=== PATIENT | female | born 1950 | race Caucasian/White ===

== ENCOUNTER 2020-07-06 21:01 | Emergency (ER) | payer MEDICARE, MEDICAID, SELFPAY ==
[2020-07-06] VITALS (14 sets, daily range): BP systolic 106–125; BP diastolic 65–83; PULSE 65–91; RESP 12–21; TEMP 36.4–36.6; O2SAT 95–99; BMI 41.5
--- NOTE | 2020-07-06 21:08 | CTR_ITS ---
PROCEDURE INFORMATION: Exam: CT Head Without Contrast Exam date and time: 07/06/2020 9:09 PM Age: 70 years old Clinical indication: Weakness, extremity and weakness, facial; Left; Patient HX: Jonelle 2 hrs ago complete L sided defecit; Additional info: CVA TECHNIQUE: Imaging protocol: Computed tomography of the head without contrast. Radiation optimization: All CT scans at this facility use at least one of these dose optimization techniques: automated exposure control; mA and/or kV adjustment per patient size (includes targeted exams where dose is matched to clinical indication); or iterative reconstruction. Other technique: STROKE PROTOCOL was implemented. COMPARISON: No relevant prior studies available. RADIATION DOSE METRICS: Total DLP (mGy-cm): 637.79 FINDINGS: Brain: An 1.1 x 1.2 x 3.2 cm hemorrhage is present in the antoinette. No midline shift. No CT evidence of acute infarction is seen. Cerebral ventricles: No ventriculomegaly. Bones/joints: Unremarkable. No acute fracture. Paranasal sinuses: Visualized sinuses are unremarkable. No fluid levels. Mastoid air cells: Visualized mastoid air cells are well aerated. Soft tissues: Unremarkable. CT/CT head wo con* [id number] IMPRESSION: Pontine hemorrhage. ASSESSMENT: ASPECTS ([place] Stroke Program Early CT Score) is 10. Radiation Dose CTDIVOL = (mGy): DLP = 637.79 (mGy-cm)
--- NOTE | 2020-07-06 21:11 | XRR_ITS ---
PROCEDURE INFORMATION: Exam: XR Chest, 1 View Exam date and time: 07/06/2020 9:19 PM Age: 70 years old Clinical indication: Condition or disease; Other: AMS; Patient HX: Intubated, og tube TECHNIQUE: Imaging protocol: XR of the chest Views: 1 view. COMPARISON: No relevant prior studies available. FINDINGS: Tubes, catheters and devices: Endotracheal tube, tip 3.3 cm above noel. Nasogastric tube, tip below diaphragm and off image. Lungs: Moderate right basilar airspace opacity (atelectasis and/or consolidation). Mild patchy airspace opacities (atelectasis and/or consolidation) at the left lung base. Mild pulmonary vascular congestion. Pleural space: No visible pneumothorax. Small right pleural effusion. Heart/Mediastinum: Heart size within normal limits. Large right paratracheal mass. If this has not been previously investigated, CT of the chest with contrast is suggested. Diaphragm: Elevation of the right hemidiaphragm. Bones/joints: No emergent findings identified. XR/XR chest 1V portable [id number] IMPRESSION: 1. Endotracheal tube, tip 3.3 cm above noel. 2. Nasogastric tube, tip below diaphragm and off image. 3. Moderate right basilar airspace opacity (atelectasis and/or consolidation). 4. Mild patchy airspace opacities (atelectasis and/or consolidation) at the left lung base. 5. Mild pulmonary vascular congestion. 6. Small right pleural effusion. 7. Large right paratracheal mass. If this has not been previously investigated, CT of the chest with contrast is suggested. 8. Elevation of the right hemidiaphragm.
--- NOTE | 2020-07-06 21:12 | ECG_ITS ---
[facility] Test Date: 2020-07-06 Pat Name: Niesha Watkins Department: Room: Gender: Female Adjutant General: : 1950 Requested By: Bakari Reza Order Number: [id number] Keith MD: Flo Pace M.D. Measurements Intervals [place] Rate: 91 P: 47 IA: 159 QRS: 15 QRSD: 92 T: 61 QT: 364 QTc: 449 Interpretive Statements SINUS RHYTHM WITH OCCASIONAL SUPRAVENTRICULAR PREMATURE COMPLEXES No previous ECG available for comparison Electronically Signed On 07-07-2020 19:00:32 [employer] by Flo Pace M.D. [id number]
[2020-07-06] MEDS: succinylcholine 20 mg/mL SDV 10mL 200 MG IVP (21:24)
[2020-07-06] MEDS: midazolam 1 mg/mL INJ 2 mL 4 MG IVP (21:30)
--- NOTE | 2020-07-06 21:39 | ED_ITS ---
HPI - Neuro Symptoms/Deficit General: Chief Complaint: Neuro Symptoms/Deficit Stated Complaint: STROKE ALERT Time Seen by Provider: 07/06/20 21:08 History of Present Illness: HPI Narrative: 70-year-old female who around 7 PM this evening began to complain of a bad headache. She started having language problems, and ataxia at home. Ambulance was called at some point thereafter. She presents with increasing obtundation. She says some words, some nonsensic al. Notably she was following commands on the way to the hospital, but currently is not. She does have a history of COPD. It is unknown at this point if she is on any anticoagulants Onset (ago): hour(s) Last Observed Normal: 19:00 Timing confirmed by: family member Location: speech, left arm and left leg History of same: No Severity: severe Quality: weak Relieving factors: none Exacerbating factors: none Context: sudden onset Review of Systems General: Reports: ROS unobtainable due to mental status NIH stroke score NIHSS: Level Of Consciousness - 1a: 3 Level Of Consciousness Questions - 1b: Neither Correct Level Of Consciousness Commands - 1c: Neither Correct Best Gaze - 2: Normal Visual Munoz - 3: No Visual Loss Facial Palsy - 4: Normal Motor Arm Right - 5: Effort Against Washta Motor Arm Left - 5: Effort Against Washta Motor Leg Right - 6: Effort Against Washta Motor Leg Left - 6: No Effort Against Washta Limb Ataxia - 7: Absent Sensory - 8: Normal Best Language - 9: Severe Aphasia Dysarthia - 10: Intubated Extinction And Inattention - 11: 2 Score: Total Score: 20 Physical Exam Const: EXAM LIMITATIONS: altered mental status ORIENTATION/CONSCIOUSNESS: Yes patient obtunded Chest: COMMONS NORMALS: normal inspection of the chest Resp: EFFORT & INSPECTION: Yes tachypneic and No tracheal deviation AUSCULTATION: crackles, wheezes and diminished lung sounds Cardio: COMMON NORMALS: Peripheral pulses 2+ throughout PERIPHERAL PULSES: Peripheral pulses 2+ throughout GI: COMMON NORMALS: Normal to inspection, nondistended, normoactive bowel sounds present Procedures Intubation Time out performed: No sedative: Etomidate Mg Given: 20 paralytic: Succinylcholine Mg Given: 200 Laryngoscope: Halle (4) ET Tube Size: 8 ET Tube Uncuffed: No Tube Secured Depth (cm): 24 Tube Placement Confirmation: visualized tube passing through cords, no breath sounds over epigastrium and confirmation by capnometry Patient Tolerated Procedure: well and no complications Intubation Complications: none Course Consultations: Consultation #1: Lynne Chavez Neurosurgery Consultation #2: Lynne Quarles ER Vital Signs: Vital signs: Vital Signs Temperature 97.8 F 07/06/20 21:35 Pulse Rate 68 07/07/20 01:10 Respiratory Rate 12 07/07/20 02:15 Blood Pressure 96/53 07/07/20 01:10 Pulse Oximetry 99 07/07/20 01:10 MDM - Neuro Symptoms/Deficit MDM Narrative: Medical decision making narrative: 70-year-old female with dysarthria, left-sided weakness, and severe headache. She has an intracranial hemorrhage, pontine on CT. On arrival, she became more more obtunded, and was intubated without complication. She has a history of significant COPD. Initial blood gas showed normal pH but an elevated PCO2, but the patient was becoming increasingly obtunded very quickly. Stable now on the ventilator. Heart rate 72, O2 sat 98%, blood pressure 106/79. She is on Versed and fentanyl for se dation. We have no neurosurgery or neurology coverage here. We talked to Dr. Chavez, neurosurgery at [facility] who tentatively excepted the patient to the ER. We talked to the ER at [facility], and they have accepted. There were no beds at either hospital in [place], as they are on divert. We also checked air ambulance, and nobody can fly due to low visibility, so she will go by ground. 23:35 [facility], ER called us back about this patient. As it seems, they have no ICU beds available, and this patient would have to be held in the ER all night, as such they do not believe it would be in the best interest of the patient to transfer from here to there. They suggested we call other facilities multiple other facilities have been called. We ended up speaking with the transfer line at [facility] in [place]. Dr. Andino from neurosurgery accepted the patient to the neuro ICU there. Again due to weather concerns, she will have to go by ground. Lab Data: Labs: Lab Results 07/06/20 07/06/20 07/06/20 Range/Units 21:15 21:18 21:18 WBC Cancelled Corrected WBC Cancelled RBC Cancelled Hgb Cancelled Hct Cancelled MCV Cancelled MCH Cancelled MCHC Cancelled RDW Cancelled Plt Count Cancelled MPV Cancelled Gran % Cancelled Neut % (Auto) Cancelled Lymph % (Auto) Cancelled [place] % (Auto) Cancelled Eos % (Auto) Cancelled Baso % (Auto) Cancelled Neut # (Auto) Cancelled Lymph # (Auto) Cancelled [place] # (Auto) Cancelled Eos # (Auto) Cancelled Baso # (Auto) Cancelled Absolute Gran (aut o) Cancelled Nucleated RBC % (a uto) Cancelled Nucleated RBCs # Cancelled PT 13.90 (12.1-14.9) SECO NDS INR 1.04 (0.8-1.2) APTT 22.4 L (23.9-36.7) SECO NDS Specimen Type Arterial Sample Site Radial, right ABG pH 7.40 (7.35-7.45) ABG pCO2 52.7 H (35-45) mmHg ABG pO2 91.7 (80.0-100.0) mmH g ABG HCO3 32.7 H (22-26) mmol/L ABG O2 Saturation ABG Base Excess 6.2 H (-2.0-2.0) mmol/ L [place] Test Pos A-a O2 Gradient (5-10) mmHg Hematocrit 46.6 (37-47) % Hgb O2 Saturation (95-100) % Carboxyhemoglobin (0.4-20.1) %THgb Methemoglobin (0.4-1.5) % Total Hemoglobin (12-16) g/dL Ionized Calcium (1.1-1.4) mmol/L O2 Delivery Device Nc O2 Liters/Min 5.0 % Mechanical Rate FiO2 % Tidal Volume PEEP cmH20 Traveling Sales Executive ID [id number] Sodium (136-145) mmol/L Potassium (3.5-5.1) mmol/L Chloride (98-107) mmol/L Carbon Dioxide (22-29) mmol/L Anion Gap (5-19) BUN (8-23) mg/dL Creatinine (0.5-0.9) mg/dL GFR Calculation (90-130) mL/min Glucose (65-115) mg/dL Calculated Osmolal ity (285-295) mOsm/k g Calcium (8.5-10.5) mg/dL Magnesium (1.7-2.3) mg/dL Total Bilirubin (0.15-1.2) mg/dL AST (0-32) U/L ALT (0-33) U/L Alkaline Phosphata se (35-105) IU/L C-Reactive Protein (0.0-4.9) mg/L Total Protein (6.6-8.7) g/dL Albumin (3.5-5.2) g/dL Globulin (1.3-4.6) g/dL Urine Color (Yellow) Urine Appearance (CLEAR) Urine pH (5-7) Ur Specific Gravit y (1.005-1.030) Urine Protein (Negative) Urine Glucose (UA) (Normal) Urine Ketones (Negative) Urine Blood (Negative) Urine Nitrate (Negative) Urine Bilirubin (Negative) Urine Urobilinogen (Negative) mg/dL Ur Leukocyte Aileen ase (Negative) SARS-CoV-2 Ag (Rap id) (Negative) 07/06/20 07/06/20 07/06/20 Range/Units 21:18 21:39 22:58 WBC 6.9 Corrected WBC RBC 4.53 Hgb 13.4 Hct 42.5 MCV 93.8 MCH 29.6 MCHC 31.5 RDW 13.4 Plt Count 166 MPV 11.6 H Gran % Neut % (Auto) 76.6 Lymph % (Auto) 14.0 [place] % (Auto) 7.1 Eos % (Auto) 1.3 Baso % (Auto) 0.9 Neut # (Auto) 5.26 Lymph # (Auto) 1.0 [place] # (Auto) 0.5 Eos # (Auto) 0.1 Baso # (Auto) 0.1 Absolute Gran (aut o) Nucleated RBC % (a uto) 0 Nucleated RBCs # 0.0 PT (12.1-14.9) SECO NDS INR (0.8-1.2) APTT (23.9-36.7) SECO NDS Specimen Type Sample Site ABG pH (7.35-7.45) ABG pCO2 (35-45) mmHg ABG pO2 (80.0-100.0) mmH g ABG HCO3 (22-26) mmol/L ABG O2 Saturation ABG Base Excess (-2.0-2.0) mmol/ L [place] Test A-a O2 Gradient (5-10) mmHg Hematocrit (37-47) % Hgb O2 Saturation (95-100) % Carboxyhemoglobin (0.4-20.1) %THgb Methemoglobin (0.4-1.5) % Total Hemoglobin (12-16) g/dL Ionized Calcium (1.1-1.4) mmol/L O2 Delivery Device O2 Liters/Min % Mechanical Rate FiO2 % Tidal Volume PEEP cmH20 Traveling Sales Executive ID Sodium 140 (136-145) mmol/L Potassium 4.7 (3.5-5.1) mmol/L Chloride 102 (98-107) mmol/L Carbon Dioxide 29 (22-29) mmol/L Anion Gap 13.7 (5-19) BUN 11 (8-23) mg/dL Creatinine 0.4 L (0.5-0.9) mg/dL GFR Calculation 157.8 H (90-130) mL/min Glucose 180 H (65-115) mg/dL Calculated Osmolal ity 294 (285-295) mOsm/k g Calcium 9.3 (8.5-10.5) mg/dL Magnesium 2.2 (1.7-2.3) mg/dL Total Bilirubin 0.7 (0.15-1.2) mg/dL AST 27 (0-32) U/L ALT 16 (0-33) U/L Alkaline Phosphata se 161 H (35-105) IU/L C-Reactive Protein 2.4 (0.0-4.9) mg/L Total Protein 7.2 (6.6-8.7) g/dL Albumin 3.5 (3.5-5.2) g/dL Globulin 3.7 (1.3-4.6) g/dL Urine Color Yellow (Yellow) Urine Appearance Clear (CLEAR) Urine pH 7 (5-7) Ur Specific Gravit y 1.020 (1.005-1.030) Urine Protein Neg (Negative) Urine Glucose (UA) Norm (Normal) Urine Ketones Negative (Negative) Urine Blood Neg (Negative) Urine Nitrate Negative (Negative) Urine Bilirubin Neg (Negative) Urine Urobilinogen 1 H (Negative) mg/dL Ur Leukocyte Aileen ase Negative (Negative) SARS-CoV-2 Ag (Rap id) (Negative) 07/07/20 07/07/20 Range/Units 00:13 00:45 WBC Corrected WBC RBC Hgb Hct MCV MCH MCHC RDW Plt Count MPV Gran % Neut % (Auto) Lymph % (Auto) [place] % (Auto) Eos % (Auto) Baso % (Auto) Neut # (Auto) Lymph # (Auto) [place] # (Auto) Eos # (Auto) Baso # (Auto) Absolute Gran (aut o) Nucleated RBC % (a uto) Nucleated RBCs # PT (12.1-14.9) SECO NDS INR (0.8-1.2) APTT (23.9-36.7) SECO NDS Specimen Type Arterial Sample Site Radial, left ABG pH 7.35 (7.35-7.45) ABG pCO2 56.9 H (35-45) mmHg ABG pO2 133.0 H (80.0-100.0) mmH g ABG HCO3 31.7 H (22-26) mmol/L ABG O2 Saturation 99.3 ABG Base Excess 4.5 H (-2.0-2.0) mmol/ L [place] Test N/a A-a O2 Gradient 19.9 H (5-10) mmHg Hematocrit 43.6 (37-47) % Hgb O2 Saturation 97.5 (95-100) % Carboxyhemoglobin 1.0 (0.4-20.1) %THgb Methemoglobin 0.8 (0.4-1.5) % Total Hemoglobin 14.2 (12-16) g/dL Ionized Calcium 1.2 (1.1-1.4) mmol/L O2 Delivery Device Vent O2 Liters/Min % Mechanical Rate 12.0 FiO2 50.0 % Tidal Volume 0.45 PEEP 5.0 cmH20 Traveling Sales Executive ID [id number] Sodium 143.0 (136-145) mmol/L Potassium 4.4 (3.5-5.1) mmol/L Chloride (98-107) mmol/L Carbon Dioxide (22-29) mmol/L Anion Gap (5-19) BUN (8-23) mg/dL Creatinine (0.5-0.9) mg/dL GFR Calculation (90-130) mL/min Glucose 152.0 H (65-115) mg/dL Calculated Osmolal ity (285-295) mOsm/k g Calcium (8.5-10.5) mg/dL Magnesium (1.7-2.3) mg/dL Total Bilirubin (0.15-1.2) mg/dL AST (0-32) U/L ALT (0-33) U/L Alkaline Phosphata se (35-105) IU/L C-Reactive Protein (0.0-4.9) mg/L Total Protein (6.6-8.7) g/dL Albumin (3.5-5.2) g/dL Globulin (1.3-4.6) g/dL Urine Color (Yellow) Urine Appearance (CLEAR) Urine pH (5-7) Ur Specific Gravit y (1.005-1.030) Urine Protein (Negative) Urine Glucose (UA) (Normal) Urine Ketones (Negative) Urine Blood (Negative) Urine Nitrate (Negative) Urine Bilirubin (Negative) Urine Urobilinogen (Negative) mg/dL Ur Leukocyte Aileen ase (Negative) SARS-CoV-2 Ag (Rap id) Negative (Negative) Discharge Plan Discharge Patient Disposition: Xfer Other Clinical Impression: Intracranial hemorrhage, Respiratory failure Condition: Critical Referrals: Isaiah Burns [Primary Care Provider] - Coding Level of Care Code ED [employer]per [employer] Operator for Chg Fwd Exam Detailed
[2020-07-06 21:41] LABS: ABG PCO2 52.7 mmHg (35-45); Arterial Blood Gas Hematocrit 46.6 % (37-47); Base Excess ABG 6.2 mmol/L (-2.0-2.0); Blood Gas Allen Test Pos; Blood Gas Sample Site Radial, right; Blood Gas Sample Type Arterial; HCO3 ABG 32.7 mmol/L (22-26); Oxygen Device NC; PO2 ABG 91.7 mmHg (80.0-100.0)
[2020-07-06] MEDS: vecuronium 10 mg SDV IVP (21:42)
[2020-07-06] MEDS: sodium chloride 0.9% 500 ML IV (21:47)
[2020-07-06 22:01] LABS: INR 1.04 (0.8-1.2)
[2020-07-06 22:02] LABS: Partial Thromboplastin Time 22.4 SECONDS (23.9-36.7)
[2020-07-06 22:11] LABS: Albumin Level 3.5 g/dL (3.5-5.2); Alkaline Phosphatase 161 IU/L (35-105); Blood Urea Nitrogen 11 mg/dL (8-23); C Reactive Protein 2.4 mg/L (0.0-4.9); Calcium 9.3 mg/dL (8.5-10.5); Carbon Dioxide 29 mmol/L (22-29); Chloride 102 mmol/L (98-107); Globulin 3.7 g/dL (1.3-4.6); Glomerular Filtration Rate 157.8 mL/min (90-130); Glucose 180 mg/dL (65-115); Magnesium 2.2 mg/dL (1.7-2.3); Osmolality Calculated 294 mOsm/kg (285-295); Sodium 140 mmol/L (136-145); Total Bilirubin 0.7 mg/dL (0.15-1.2); Total Protein 7.2 g/dL (6.6-8.7)
[2020-07-06 22:18] LABS: Alanine Aminotransferase 16 U/L (0-33); Anion Gap 13.7 (5-19); Aspartate Amino Transferase 27 U/L (0-32); Potassium 4.7 mmol/L (3.5-5.1)
--- NOTE | 2020-07-06 22:39 | PC.NURSE ---
Pt intubated with Versed and Fentanyl. VSS. Continue to monitor.
[2020-07-06 22:54] LABS: Add Urine Microscopic? NO
[2020-07-06 23:00] LABS: Bilirubin Urine Neg (Negative); Blood Urine Neg (Negative); Glucose Urine UA Norm (Normal); Ketones Urine Negative (Negative); Leukocyte Esterase Urine Negative (Negative); Nitrate Urine Negative (Negative); Protein Urine Neg (Negative); Urine Appearance Clear (CLEAR); Urine Color Yellow (Yellow); Urobilinogen Urine 1 mg/dL (Negative); pH Urine 7 (5-7)
[2020-07-06 23:03] LABS: Basophils # 0.1 10^3/uL (0.0-0.1); Basophils % 0.9 %; Eosinophils # 0.1 10^3/uL (0.0-0.8); Eosinophils % 1.3 %; Hematocrit 42.5 % (37.0-47.0); Hemoglobin 13.4 g/dL (11.5-15.3); Mean Corpuscular HGB Conc 31.5 g/dL (30.0-36.0); Mean Corpuscular Hemoglobin 29.6 pg (28.0-34.0); Mean Corpuscular Volume 93.8 fL (81-99); Mean Platelet Volume 11.6 fL (7.4-10.4); Monocytes # 0.5 10^3/uL (0.2-0.9); Monocytes % 7.1 %; Neutrophils # 5.26 10^3/uL (1.8-7.7); Neutrophils % 76.6 %; Nucleated Red Blood Cells % 0 %; Platelet Count 166 10^3/cmm (130-400); Red Blood Count 4.53 10^6/uL (4.1-5.3); Red Cell Distribution Width 13.4 % (12.1-15.1); White Blood Count 6.9 10^3/uL (4.0-10.0)
--- NOTE | 2020-07-06 23:40 | PC.NURSE ---
Pt intubated with Fentanyl and Versed infusing
--- NOTE | 2020-07-06 23:40 | PC.NURSE ---
unable to assess pain secondary to intubated. no tears, no WOB VSS
--- NOTE | 2020-07-07 00:14 | PC.NURSE ---
Pt pulling on lines and pulling on this RN's hand with COVID testing. SP02 100%. Vent adjusted and Versed increased to 2 then 2mg. Pt appears to be resting with improved VSS.
[2020-07-07 00:46] VITALS: BP 116/65; PULSE 70; RESP 12; O2SAT 99
[2020-07-07 00:50] LABS: SARS Covid-2 Antigen Negative (Negative)
[2020-07-07 00:52] LABS: ABG PCO2 56.9 mmHg (35-45); ABG PH Result 7.35 (7.35-7.45); Alveolar-Arterial Oxygen Gradi 19.9 mmHg (5-10); Arterial Blood Gas Hematocrit 43.6 % (37-47); Base Excess ABG 4.5 mmol/L (-2.0-2.0); Blood Gas Sample Site Radial, left; Blood Gas Sample Type Arterial; Blood Gas Tidal Volume 0.45; HCO3 ABG 31.7 mmol/L (22-26); HGB O2 Sat 97.5 % (95-100); Ionized Calcium Level - ABG 1.2 mmol/L (1.1-1.4); Methemoglobin 0.8 % (0.4-1.5); Oxygen Device VENT; Oxygen Saturation ABG 99.3; Potassium Level - ABG 4.4 mmol/L (3.5-5.0); Total Hemoglobin 14.2 g/dL (12-16)
[2020-07-07] MEDS: sodium chloride 0.9% (100 ml) 100 ML 10 ML (01:09)
[2020-07-07 01:10] VITALS: BP 96/53; PULSE 68; RESP 12; O2SAT 99
[2020-07-07 02:15] VITALS: RESP 12
== END 2020-07-07 03:40 | disposition other institution (70) ==
PROVIDERS: Emergency Provider Emergency Medicine; PCP Family Medicine
DX: I62.9 Nontraumatic intracranial hemorrhage, unspecified (principal); J96.90 Respiratory failure, unspecified, unspecified whether with hypoxia or hypercapnia
CPT/HCPCS: 12345; 31500; 36600; 51702; 70450; 71045; 80051; 80053; 81003; 82330; 82803; 82805; 83605; 83735; 85025; 85610; 85730; 86140; 87426; 93005; 94002; 94003; 94799; 96365; 96366; 96367; 99283; 99291; J0330; J2250; J3010; J3490; J7040